=== PATIENT | female | born 1940 | race Caucasian/White ===

== ENCOUNTER → 2016-07-12 07:45 | Outpatient (CLI) | payer MEDICARE, OTHER ==
[2013-12-19 10:15] VITALS: BMI 22.1
[~2016-07-12 07:45] MED LIST: COLACE100 MG PO; COREG12.5 MG PO; K-TAB10 MEQ PO; LASIX40 MG PO; MAGNESIUM GLUC500 M1 PO; MOBIC7.5 MG PO; MULTI-DAY VITAM1 TAB PO; NEXIUM40 MG PO; NORVASC5 MG PO; PRAVACHOL20 MG PO; PROZAC10 MG PO; VENTOLIN HFA18 GM INH
== END | disposition home or self-care (01) ==
LOC: D.RAD 07:45
DX: J44.9 Chronic obstructive pulmonary disease, unspecified (principal)

== ENCOUNTER → 2016-08-15 09:15 | Outpatient (CLI) | payer MEDICARE, OTHER ==
[2013-12-19 10:15] VITALS: BMI 22.1
[2016-08-15 10:13] LABS: CREATININE - SERUM 0.9 mg/dL (0.6-1.3)
== END | disposition home or self-care (01) ==
LOC: D.CT 09:15 → D.LAB 01-29 09:15 → D.CT 01-29 09:30
PROVIDERS: Internal Medicine Pulmonary Disease
DX: J47.9 Bronchiectasis, uncomplicated (principal)

== ENCOUNTER → 2017-03-19 15:14 | Outpatient (CLI) | payer MEDICARE, OTHER ==
[2013-12-19 10:15] VITALS: BMI 22.1
== END | disposition home or self-care (01) ==
LOC: D.RAD 10:15
DX: J45.991 Cough variant asthma (principal)

== ENCOUNTER → 2017-09-19 13:03 | Outpatient (CLI) | payer MEDICARE, OTHER ==
[2013-12-19 10:15] VITALS: BMI 22.1
== END | disposition home or self-care (01) ==
LOC: D.RT 13:00
DX: J44.9 Chronic obstructive pulmonary disease, unspecified (principal)

== ENCOUNTER 2018-01-04 14:12 | Inpatient (IN) | payer MEDICARE, OTHER ==
[~2018-01-04] VITALS: Ht 167.6 cm; Wt 62.6 kg
[2018-01-04 14:46] LABS: BASOPHILS 0.4 % (0-2); EOSINOPHILS 2.4 % (0-7); HEMATOCRIT 37.1 % (36.0-48.0); HEMOGLOBIN 12.5 g/dL (12-16); IMMATURE GRANULOCYTES 0.3 % (0-5); LYMPHOCYTES 30.9 % (15-50); MCH 30.5 pg (26.0-34.0); MCHC 33.7 g/dL (31.0-37.0); MCV 90.5 fL (80.0-100.0); MEAN PLATELET VOLUME 10.5 fL (7.4-10.4); RDW 13.6 % (11.5-14.5); WBC 7.5 10x3/uL (4.8-10.8)
[2018-01-04 14:52] LABS: PLATELET COUNT 187 10x3/uL (130-400)
[2018-01-04 15:00] LABS: ALBUMIN 4.1 g/dL (3.4-5.0); ANION GAP 9.4 mmol/L (8-16); BILIRUBIN - TOTAL 0.51 mg/dL (0.2-1.3); CALCIUM 8.8 mg/dL (8.5-10.1); CARBON DIOXIDE 30.2 mmol/L (21.0-32.0); POTASSIUM - SERUM 3.6 mmol/L (3.5-5.1); PROTEIN - SERUM 7.1 g/dL (6.4-8.2)
[2018-01-04 15:07] LABS: APTT 33.1 SECONDS (22.8-39.4); INR 0.95 (0.85-1.17); PROTIME 12.3 SECONDS (11.6-15.0)
[2018-01-04 15:37] VITALS: BP 169/64
[2018-01-04 16:10] VITALS: BP 156/54
[2018-01-04 18:37] VITALS: BP 150/63
[2018-01-04 19:45] VITALS: BP 167/75
[2018-01-04] MEDS ORDERED: COZAAR100 MG PO (21:59)
[2018-01-04] MEDS ORDERED: LIPITOR10 MG PO (22:01)
[2018-01-04] MEDS ORDERED: ALENDRONATE SOD70 MG PO (22:03)
[2018-01-04] MEDS ORDERED: ED-SPAZ0.125 MG PO (22:11)
[2018-01-05] VITALS: BP 127/59
[2018-01-05 00:37] VITALS: BP 127/59; BMI 22.3
[2018-01-05 04:00] VITALS: BP 160/55
[2018-01-05] MEDS ORDERED: PLAVIX75 MG PO (06:34)
[2018-01-05 09:15] VITALS: BP 161/52
[2018-01-05 13:57] VITALS: BMI 22.2
[2018-01-05 14:28] VITALS: Ht 167.6 cm; Wt 62.6 kg
[2018-01-05 17:00] VITALS: BP 156/57
[2018-01-05 20:38] VITALS: BP 92/41
[2018-01-06 00:30] VITALS: BP 126/60
[2018-01-06 04:30] VITALS: BP 157/63
[2018-01-06 06:24] LABS: BASOPHILS 0.7 % (0-2); EOSINOPHILS 3.4 % (0-7); HEMATOCRIT 37.7 % (36.0-48.0); HEMOGLOBIN 12.5 g/dL (12-16); IMMATURE GRANULOCYTES 0.3 % (0-5); LYMPHOCYTES 38.8 % (15-50); MCH 30.2 pg (26.0-34.0); MCHC 33.2 g/dL (31.0-37.0); MCV 91.1 fL (80.0-100.0); MEAN PLATELET VOLUME 10.7 fL (7.4-10.4); MONOCYTES 12.1 % (2-11); NEUTROPHILS 44.7 % (40-80); PLATELET COUNT 189 10x3/uL (130-400); RBC 4.14 10x6/uL (4.00-5.40); RDW 13.9 % (11.5-14.5); WBC 5.9 10x3/uL (4.8-10.8)
[2018-01-06 06:54] LABS: ALBUMIN 3.4 g/dL (3.4-5.0); ANION GAP 10.1 mmol/L (8-16); BILIRUBIN - TOTAL 0.3 mg/dL (0.2-1.3); CALCIUM 8.4 mg/dL (8.5-10.1); CARBON DIOXIDE 28.6 mmol/L (21.0-32.0); CREATININE - SERUM 0.8 mg/dL (0.6-1.3); POTASSIUM - SERUM 3.7 mmol/L (3.5-5.1); PROTEIN - SERUM 6.3 g/dL (6.4-8.2)
[2018-01-06 08:51] VITALS: BP 133/67
[2018-01-06 12:20] VITALS: BP 121/48
[2018-01-06 16:55] VITALS: BP 141/43
[2018-01-06 20:20] VITALS: BP 136/50
[2018-01-07 00:30] VITALS: BP 134/54
[2018-01-07 04:30] VITALS: BP 150/56
[2018-01-07 04:34] LABS: BASOPHILS 0.7 % (0-2); EOSINOPHILS 3.8 % (0-7); IMMATURE GRANULOCYTES 0.5 % (0-5); LYMPHOCYTES 43.6 % (15-50); MCH 30.2 pg (26.0-34.0); MCHC 33.3 g/dL (31.0-37.0); MCV 90.7 fL (80.0-100.0); MEAN PLATELET VOLUME 10.4 fL (7.4-10.4); MONOCYTES 9.1 % (2-11); NEUTROPHILS 42.3 % (40-80); PLATELET COUNT 179 10x3/uL (130-400); RBC 3.97 10x6/uL (4.00-5.40); RDW 13.9 % (11.5-14.5); WBC 5.8 10x3/uL (4.8-10.8)
[2018-01-07 05:07] LABS: ALBUMIN 3.2 g/dL (3.4-5.0); ANION GAP 11.7 mmol/L (8-16); BILIRUBIN - TOTAL 0.2 mg/dL (0.2-1.3); CARBON DIOXIDE 26.9 mmol/L (21.0-32.0); CREATININE - SERUM 0.9 mg/dL (0.6-1.3); POTASSIUM - SERUM 3.6 mmol/L (3.5-5.1)
[2018-01-07 07:47] VITALS: BP 139/48
[2018-01-07] MEDS ORDERED: COREG12.5 MG PO (10:25)
[2018-01-07] MEDS ORDERED: ASPIRIN81 MG PO (10:26)
[2018-01-07 11:18] VITALS: BP 152/52
[2018-02-05] MEDS ORDERED: ASPIRIN325 MG PO (11:38)
[2018-02-05] MEDS ORDERED: COZAAR100 MG PO (11:39)
[2018-02-05] MEDS ORDERED: CALCIUM 600 +1 EAC3 PO (11:42)
[2018-02-05] MEDS ORDERED: DULERA 100 MCG8.8 GM INH (11:43)
[2018-02-05] MEDS ORDERED: FLUTICASONE PRO16 GM NASAL (11:44)
== END 2018-01-07 13:57 | disposition home or self-care (01) | DRG 66 ==
LOC: D.ER 14:12 → D.M2 18:40 → D.EDHOLD 18:40 → D.M2 20:55
PROVIDERS: Emergency Medicine; Family Medicine
DX: I63.233 Cerebral infarction due to unspecified occlusion or stenosis of bilateral carotid arteries (principal); I10 Essential (primary) hypertension; E78.5 Hyperlipidemia, unspecified; M81.0 Age-related osteoporosis without current pathological fracture; Z85.3 Personal history of malignant neoplasm of breast; I25.10 Atherosclerotic heart disease of native coronary artery without angina pectoris; I69.322 Dysarthria following cerebral infarction; R20.0 Anesthesia of skin

== ENCOUNTER 2018-01-10 03:45 | Emergency (ER) | payer MEDICARE, OTHER ==
[~2018-01-10] VITALS: Ht 167.6 cm; Wt 63.6 kg
[~2018-01-10 03:45] MED LIST changes: +ALENDRONATE SOD70 MG PO; +ASPIRIN81 MG PO; +COZAAR100 MG PO; +ED-SPAZ0.125 MG PO; +LIPITOR10 MG PO; +PLAVIX75 MG PO
[2018-01-10 03:52] VITALS: Ht 167.6 cm; Wt 63.6 kg
[2018-01-10 04:38] VITALS: BP 160/70
== END 2018-01-10 04:38 | disposition home or self-care (01) ==
LOC: D.ER 03:45
DX: R20.2 Paresthesia of skin (principal); Z86.79 Personal history of other diseases of the circulatory system; Z86.73 Personal history of transient ischemic attack (TIA), and cerebral infarction without residual deficits; Z79.01 Long term (current) use of anticoagulants; I10 Essential (primary) hypertension

== ENCOUNTER 2018-02-06 05:00 | Inpatient (IN) | payer MEDICARE, OTHER ==
[2018-02-05 11:20] LABS: HEMOGLOBIN 11.7 g/dL (12-16); MCH 30.5 pg (26.0-34.0); MCHC 33.4 g/dL (31.0-37.0); MCV 91.4 fL (80.0-100.0); MEAN PLATELET VOLUME 10.1 fL (7.4-10.4); RBC 3.83 10x6/uL (4.00-5.40); RDW 13.4 % (11.5-14.5); WBC 7.8 10x3/uL (4.8-10.8)
[2018-02-05 11:30] LABS: ALBUMIN 3.6 g/dL (3.4-5.0); ANION GAP 9.5 mmol/L (8-16); BILIRUBIN - TOTAL 0.46 mg/dL (0.2-1.3); CALCIUM 9.1 mg/dL (8.5-10.1); CARBON DIOXIDE 30.7 mmol/L (21.0-32.0); POTASSIUM - SERUM 4.2 mmol/L (3.5-5.1); PROTEIN - SERUM 6.8 g/dL (6.4-8.2)
[2018-02-05 11:32] LABS: APPEARANCE CLEAR (CLEAR); BILIRUBIN NEGATIVE (NEGATIVE); COLOR YELLOW (YELLOW); GLUCOSE NEGATIVE (NEGATIVE); KETONE NEGATIVE (NEGATIVE); NITRITE NEGATIVE (NEGATIVE); PH 7.5 (5.0-6.0); PROTEIN NEGATIVE (NEGATIVE); SPECIFIC GRAVITY 1.005 (1.005-1.020); UROBILINOGEN NORMAL (NORMAL)
[2018-02-05 11:36] LABS: APTT 31.5 SECONDS (22.8-39.4); INR 1.03 (0.85-1.17); PROTIME 13.1 SECONDS (11.6-15.0)
[2018-02-06] VITALS (56 sets, daily range): BP systolic 99–143; BP diastolic 39–65; BMI 22.6; BMI 23.1
[~2018-02-06] VITALS: Ht 167.6 cm; Wt 65.7 kg
--- NOTE | ~2018-02-06 | HP ---
PATIENT: ROXANA SOLIS MEDICAL RECORD: [id number] ACCOUNT: [id number] LOCATION:[facility] D.CV03 : 39 ADMISSION DATE: 02/06/18 PCP: FRANTZ ARRIOLA MD HISTORY AND PHYSICAL EXAMINATION ROXANA Riggs (77yo, F) ID# [id number] Date/Time01/24/2018 01:53IJCCS45 1939Service Dept.[facility]PP[facility] ClinicProviderEDBETH ARRIOLA MDInsuranceMed Primary: [place] Insurance # : [id number] PCP : GABRIELLA KNIGHT I Referring Provider Name : GABRIELLA KNIGHT I Employer Name : UNKNOWN Med Secondary: [employer] (INDEMNITY) Insurance # : [id number] Policy/Group # : [id number] Employer Name : RETIRED Med Tertiary: FOR LIFE ( - MEDICARE SUPPLEMENT) Insurance # : [id number] Employer Name : RETIRED Prescription: CMX - Member is eligible. Prescription: ESI1 - Member is eligible. Chief Complaint Carotid stenosis 2 week hospital follow up, hx TIA/CVA Patient's Care Team Primary Care Provider (): GABRIELLA KNIGHT I: [address] [place] [address], , Referring Provider (): GABRIELLA KNIGHT I: [address] [place] [address], , Wallet Assembler: LESLY PEREZ MD Patient's Pharmacies [facility] ([facility]): [address] [place] [address], , [facility] (PRIMARY) (MAIL-ORDER, [facility]): [address], [place] [address], , Vitals BP:152/60 sitting R arm 01/24/2018 02:24 pm 154/60 sitting L arm 01/24/2018 02:24 pmHR:66/reg 01/24/2018 02:24 pmHt:5 ft 6 in 01/24/2018 02:18 pmWt:145 lbs 01/24/2018 02:20 pmBMI:23.4 01/24/2018 02:20 pmAllergies Reviewed Allergies HYDRODIURILMedications Reviewed Medications alendronate 70 mg /08/18 filledCaremarkamLODIPine 5 mg /27/18 filledCaremarkatorvastatin 20 mg yvouxf29/05/18 filledCaremarkcarvedilol 12.5 mg /27/18 filledCaremarkclopidogrel 75 mg tablet Take 1 tablet(s) every day by oral route.01/22/18 enteredKat Wilsondocusate sodium 100 mg capsule Take 1 capsule(s) every day by oral route.01/22/18 enteredKat WilsonDulera 100 mcg-5 mcg/actuation HFA aerosol inhaler INHALE TWO PUFFS BY MOUTH TWICE A DAY09/02/17 filledCaremarkEd-Spaz 0.[address] 1 tablet(s) every 4 hours by sublingual route.01/22/18 enteredKat Wilsonesomeprazole magnesium 40 mg capsule,delayed release Take 1 capsule(s) every day by oral route for 30 days.12/10/17 HISTORY AND PHYSICAL [id number] ROXANA SOLSI filledCaremarkFlonase Allergy Relief 50 mcg/actuation nasal spray,suspension [place] 1 spray(s) every day by intranasal route.08/04/16 Yeyo Hammond MDFLUoxetine 10 mg vglvuf50/12/18 filledCaremarkfurosemide 40 mg /06/18 filledCaremarkmagnesium gluconate 27.5 mg magnesium (500 mg) tablet Take by oral route.01/22/18 enteredKathy Wilsonmeloxicam 15 mg kaamsp89/21/18 filledCaremarkpotassium chloride ER 20 mEq tablet,extended release(part/cryst)07/17/17 filledCaremarkTheragran-M Premier 50 Plus01/22/18 enteredKat WilsonVentolin HFA 90 mcg/actuation aerosol inhaler Inhale 2 puff(s) every 4 hours by inhalation route as needed.10/10/17 filledCaremarkVaccines Reviewed Vaccines Vaccine TypeDateAmt.RouteSiteLot #Mfr.Exp. DateDate on VISVIS KfesbMvwdrniyigXmwioqnvf26/14/170.5 mgIntramuscularDeltoid, Xqfqd2r9nBrcarGwgmkAfczh59//11/1510/14/17CHARITY MCALLISTERinfluenza, high dose [id number] vax 2014, PVX 23- < 5 yrs. Problems Reviewed Problems Candidiasis of mouth Carotid artery stenosis - Onset: 01/22/2018, Bilateral Rhinitis Cough variant asthma Bronchiectasis Chronic obstructive lung disease Atelectasis Gastroesophageal reflux disease Fever Dyspnea Cough Hemoptysis, Bilateral Solitary nodule of lung Family History Reviewed Family History Maternal Aunt- Malignant neoplastic disease - Breast (previously recorded as Cancer, other)Unspecified Relation- Diabetes mellitus - natural child - Family history of Cardiovascular disease - parent,siblingSocial History Reviewed Social History Cardiology Family history of heart disease?: Y Smoking Status: Never smoker High Cholesterol: Y High blood pressure: Y Alcohol intake: Moderate (Notes: 1-2 ozs per day) Occupation: Retired Surgical History Reviewed Surgical History Other - 2010 - T Spine - T10 Other - 1997 - Reconstruction R Post Masectomy HISTORY AND PHYSICAL [id number] ROXANA SOLIS Other - 1996 - R Masectomy Other - 1989 - Thorocotomy 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 HPI Stroke Carotid artery disease ROS Patient reports no significant weight loss and no exercise intolerance; dieting. She reports cough but reports no wheezing and no shortness of breath. She reports weakness and numbness but reports no loss of consciousness, no seizures, no dizziness, and no headaches; Recent stroke left hemisphere secondary to ruptured carotid plaque. She reports runny nose and sinus pressure but reports no itching, no hives, and no frequent sneezing. She reports no dry eyes, no irritation, and no vision change. She reports no difficulty hearing and no ear pain. She reports no frequent nosebleeds and no nose/sinus problems. She reports no sore throat, no bleeding gums, no snoring, no dry mouth, no mouth u l cers, no oral abnormalities, and no teeth problems. She reports no jugular vein distension and no swollen glands. She reports no chest pain, no arm pain on exertion, no shortness of breath when lying down, no palpitations, and no known heart murmur. She r e ports no abdominal pain, no vomiting, normal appetite, no diarrhea, not vomiting blood, no nausea, and no constipation. She reports no incontinence, no difficulty urinating, no hematuria, and no increased frequency. She reports no muscle aches, no muscle w eakness, no arthralgias/joint pain, no back pain, and no swelling in the extremities. She reports no abnormal mole, no jaundice, and no rashes. She reports no depression, no sleep disturbances, feeling safe in relationship, and no alcohol abuse. She repor ts no fatigue. She reports no swollen glands and no bruising. ROS as noted in the HPI Physical Exam Patient is a 77-year-old female. Constitutional: General Appearance: well nourished and well developed. Level of Distress: no acute distress. Ambulation: ambulating normally. Ears: Cerumen negative. Canal: no erythema or swelling. Tympanic Membrane: no bulging or fluid and perforated. HISTORY AND PHYSICAL [id number] ROXANA SOLIS Nasal: Nasal Mucosa: no discharge and pink and moist. Septum: not markedly deformed. Oropharynx: Lips, Teeth, and Gums normal dentition; Right lower lip droop. Oral Mucosa no ulcer, mass, inflammation, swelling, or leukoplakia and moist. Palate: normal hard palate and soft palate. Tongue: no erythema, lesions, enlargement, or swelling. Tonsils: no enlargement or lesions. Post erior Pharynx no enlargement, erythema, exudate, ulcers, mass, or white patches and cobblestoning. Neck: Neck: supple, trachea midline, no masses, and Full ROM; Bilateral carotid bruits. Thyroid: no enlargement or nodules and non-tender. Jugular Veins: no jugular venous distention or drew a waves present and normal jugular venous pressure. Lungs: Respiratory effort: unlabored. Inspection: normal curve and chest wall expansion; no deformity, tenderness, or swellin g; and tactile fremitus present and equal on both sides. Auscultation: no wheezing, rales/crackles, or rhonchi and decreased breath sounds,bilateral,bases. Percussion: no dullness, flatness, or hyperresonance. Cardiovascular: Precordial Exam: non displace d focal PMI. Heart Rate And Rhythm: normal heart rate and rhythm. Heart Sounds: no gallop, click, physiologically split S2, or pericardial friction rub and normal s1. Systolic Murmur: no systolic murmurs. Diastolic Murmur: no diastolic murmurs. Observatio n/Palpation of peripheral vascular system: no cyanosis or varicosity changes and normal dorsalis pedis and posterior tibialis. Abdomen: Inspection and Palpation: no tenderness or masses and soft and non-distended. Liver: non-tender and no hepatomegaly. Spl een: non-tender and no splenomegaly. Bowel Sounds: normal and no abdominal bruits. Lymphatic: no cervical lymph enlargement, axillary LAD, inguinal LAD, femoral LAD, supraclavicular LAD, or popliteal LAD. Musculoskeletal:: Motor Strength and Tone: normal bulk, tone, and motor strength. Gait and Station: normal gait, station, and tandem gait. Joints, Bones, and Muscles: no contractures, malalignment, tenderness, scoliosis, kyphosis, or bony abnormalities and normal movement of all extremities. Extremities: Inspection/Palpation of digits and nails: no clubbing, cyanosis, petechiae, ischemia, or nodular lesions and Edema; trace. Skin: Inspection and palpation: no rash, lesions, jaundice, ulcer, erythema, or induration and normal turgor. Neurologic: Mental S tatus/Orientation: oriented to person, place, problem/situation, and time. Mood/Affect: normal mood and affect. Sensation decreased sensation (Left upper extremity). Cranial Nerves cranial nerves II - XII intact; Weak right central seventh Mandibular branch. Deep Tendon Reflexes upper extremities positive and lower extremities positive. Assessment / Plan Bilateral carotid artery disease Severe stenosis right internal carotid artery Ruptured plaque with stenosis left carotid bulb Recovering from stroke 1. Bilateral carotid artery stenosis I65.23: Occlusion and stenosis of bilateral carotid arteries HISTORY AND PHYSICAL [id number] ROXANA SOLIS Discussion Notes Severe right internal carotid artery stenosis. Rupture plaque left carotid bulb with embolic stroke. I think that the patient would benefit from right carotid endarterectomy followed by left carotid endarterectomy. I have discussed her Disease process with her and her daughter in detail as well as the alternative methods of treatment. We discussed right c arotid endarterectomy followed by left carotid endarterectomy at a later date. We discussed right carotid endarterectomy including the expected benefits and risk which include bleeding, infection, stroke, , and the imponderables. She understands all of the above and wishes to proceed with planned surgery. She will be scheduled for 06 February 2018 FRANTZ ARRIOLA MD at 1040 CC: [id number] DICTATION DATE: 01/24/18 1330 CHAIN PERSON: PONCHO 01/29/18 1256 ADM IN [facility] [address] [place] [id number]
--- NOTE | ~2018-02-06 | OP ---
PATIENT NAME: ROXANA SOLIS MEDICAL RECORD: [id number] :38 LOCATION:[place] D.CV03 ADMISSION DATE:02/06/18 SURGEON: FRANTZ ARRIOLA MD DATE OF OPERATION: 02/06/2018 SURGEON: Frantz Arriola MD ANESTHESIA: General, Dr. Khalil. OPERATION PERFORMED: Right carotid endarterectomy with patch angioplasty. PREOPERATIVE DIAGNOSIS: Critical right internal carotid artery stenosis. POSTOPERATIVE DIAGNOSIS: Critical right internal carotid artery stenosis. INDICATION FOR OPERATION: Severe right internal carotid artery stenosis. FINDINGS AT OPERATION: Severe right internal carotid artery stenosis. There were no EEG changes with clamping or unclamping of the carotid artery. ESTIMATED BLOOD LOSS: Less than 100 mL. The right internal carotid artery lesion tract fairly far distally, but feathered out nicely. DESCRIPTION OF PROCEDURE: After informed consent, adequate preoperative medication evaluation, the patient was brought to the operating room, placed on the table in the supine position. After induction of general endotracheal anesthesia and application of appropriate monitoring devices, the right neck and chest were prepped and draped in sterile field, utilizing Betadine scrub, alcohol, and Betadine solution. Betadine-impregnated drape was also used. An oblique incision was made in the right neck crease, dissection carried down the fascia. Hemostasis maintained with electrocautery. Facial vein was identified and divided. Utilizing sharp dissection, the common carotid, internal and external carotid arteries were dissected free from surrounding structures, protecting the neurological structures. The lesion in the right internal carotid progressed well distally under the hypoglossal nerve. The patient was given a calculated dose of heparin. After 3 minutes, clamps were applied. After 2 minutes, no EEG change. The arteriotomy was made and extended with Agee scissors. Artery underwent endarterectomy sharply. Artery underwent extensive debridement and irrigation. Utilizing a CorMatrix vascular patch and running 7-0 Prolene suture, the arteriotomy was closed with a patch angioplasty technique. All maneuvers to remove trapped air were performed. The clamps removed sequentially. There were no EEG changes. The patient was given a calculated dose of protamine to reverse the heparin. Hemostasis was achieved. A #7 Andrzej-Michael drain was left in the depths of wound and brought through the base of the neck. Neck was again irrigated. Instrument count and sponge count were correct times 2. Neck was closed in layers utilizing 3-0 Vicryl on the platysma, 5-0 subcuticular Monocryl on the skin. Sterile dressings were applied. The patient tolerated the procedure well and was transferred to cardiovascular recovery in stable condition. TRANSINT:[id number] Voice Confirmation ID: [id number] DOCUMENT ID: [id number] OPERATIVE REPORT [id number] ROXANA SOLIS EDWARD MD at 1040 CC: [id number] DICTATION DATE: 02/06/18 1023 ROLLING CHAIR PUSHER: 02/06/[address] [facility] [address] [place] [address]
[~2018-02-06 05:00] MED LIST changes: +ASPIRIN325 MG PO; +CALCIUM 600 +1 EAC3 PO; +DULERA 100 MCG8.8 GM INH; +FLUTICASONE PRO16 GM NASAL
[2018-02-07] VITALS (55 sets, daily range): BP systolic 109–153; BP diastolic 43–60; Ht 167.6 cm; Wt 65.7 kg
[2018-02-08] VITALS (10 sets, daily range): BP systolic 111–163; BP diastolic 40–56
[2018-02-08] MEDS ORDERED: ASPIRIN81 MG PO (09:01)
[2018-02-08] MEDS ORDERED: ULTRAM50 MG PO (09:05)
== END 2018-02-08 10:54 | disposition home or self-care (01) | DRG 39 ==
LOC: D.SDCHOLD 05:00 → D.CVICU 05:00 → D.SDCHOLD 07:30 → D.CVICU 09:00
PROVIDERS: Internal Medicine Cardiovascular Disease
PROC: 03UK0JZ Supplement Right Internal Carotid Artery with Synthetic Substitute, Open Approach (ICD-10-PCS; 2018-02-06)
PROC: 03CK0ZZ Extirpation of Matter from Right Internal Carotid Artery, Open Approach (ICD-10-PCS; principal; 2018-02-06 07:30)
DX: I65.23 Occlusion and stenosis of bilateral carotid arteries (principal); J45.991 Cough variant asthma; J47.9 Bronchiectasis, uncomplicated; K21.9 Gastro-esophageal reflux disease without esophagitis; R91.1 Solitary pulmonary nodule; I10 Essential (primary) hypertension; I69.331 Monoplegia of upper limb following cerebral infarction affecting right dominant side; M81.0 Age-related osteoporosis without current pathological fracture; R29.810 Facial weakness; Z85.3 Personal history of malignant neoplasm of breast

== ENCOUNTER → 2018-04-02 08:17 | Outpatient (CLI) | payer MEDICARE, OTHER ==
[2018-02-07 09:42] VITALS: BMI 23.4
--- NOTE | ~2018-04-02 | ST ---
PATIENT:ROXANA SOLIS MEDICAL RECORD: [id number] SEX: F LOCATION:[facility] ORDER #: ADMISSION DATE: 04/02/18 AGE OF PATIENT: 77 REFERRING PHYSICIAN: INTERPRETING PHYSICIAN: LESLY PEREZ MD DATE OF SERVICE: 04/02/2018 PROCEDURE: Nuclear stress test. INDICATION: Angina, hypertension, hyperlipidemia. DESCRIPTION OF PROCEDURE: She was exercised on standard Lexiscan protocol with 32.1 mCi of sestamibi injected at peak stress, 10.6 mCi were used previously for rest images. FINDINGS: Gated SPECT reveals a preserved ejection fraction at 76% with good wall motioning and thickening and brightening throughout all segments. SPECT IMAGING: Sestamibi was used as myocardial perfusion agent. There is reversibility anteriorly and apically. This includes the basal, mid, apical anterior segments as well as the apex itself. The degree of reversibility is moderate. The amount of myocardium involved is moderate. OVERALL IMPRESSION: 1. This is an abnormal nuclear stress test, reversibility anteriorly and apically. 2. Gated SPECT reveals preserved ejection fraction at 76%. In this patient with ongoing symptomatology, the current scan does suggest the presence of hemodynamically significant coronary artery disease. We will proceed with coronary angiography as follow up. TRANSINT:[id number] Voice Confirmation ID: [id number] DOCUMENT ID: [id number] LESLY PEREZ MD at 1704 CC: [id number] DICTATION DATE: 04/03/18 1217 FINANCIAL INVESTMENT MANAGER: 04/03/18 1329 DEP CLI 04/02/18 [place] [id number]
[~2018-04-02 08:17] MED LIST changes: +BAYER CHEWABLE81 MG PO; +TESSALON PERLE100 MG PO; +ULTRAM50 MG PO
== END | disposition home or self-care (01) ==
LOC: D.HCCARDIO 08:17
DX: I20.9 Angina pectoris, unspecified (principal)

== ENCOUNTER → 2018-04-15 08:00 | Outpatient (CLI) | payer MEDICARE, OTHER ==
[~2018-04-15] VITALS: Ht 167.6 cm; Wt 63.2 kg
--- NOTE | ~2018-04-15 | OP ---
PATIENT NAME: ROXANA SOLIS MEDICAL RECORD: [id number] :39 LOCATION:D.CAT ADMISSION DATE: SURGEON: LESLY PEREZ MD DATE OF OPERATION: 04/15/2018 PROCEDURES: 1. PTCA stent RCA. 2. Left heart catheterization. 3. Selective coronary angiography. 4. Left ventriculogram. INDICATION: Angina and coronary artery disease. PROCEDURE IN DETAIL: After informed consent was obtained and after a detailed description of the risks, benefits as well as alternative therapies, the patient elected to proceed with angiogram and angioplasty. The right radial area was prepped and draped in normal sterile fashion. Right radial artery was cannulated via modified Seldinger technique with placement of 6-Citizen [place] sheath. All catheters exchanged through this sheath. FINDINGS: Left ventriculogram was performed in standard 30-degree MORALES view, reveals good cardiac wall motion throughout all segments. Overall ejection fraction estimated at 55% to 60%. SELECTIVE CORONARY ANGIOGRAPHY: 1. Left main is with no significant angiographic disease. 2. Left anterior descending has at least 70% stenosis in the mid vessel that is hazy. This would be better delineated exactly by intravascular ultrasound. 3. The left circumflex has 80% to 90% stenosis in the mid vessel. 4. Right coronary artery has 2 areas of 95% stenosis. PTCA STENT OF THE RCA: The stent used 2.5 x 18 and 2.5 x 26, both Afshin stents. Result was 0% residual stenosis. OVERALL IMPRESSION: Successful percutaneous transluminal coronary angioplasty stent of the right coronary artery going from 95% initial stenosis times 2 to 0% residual stenosis. TRANSINT:[id number] Voice Confirmation ID: [id number] DOCUMENT ID: [id number] LESLY PEREZ MD at 1025 CC: [id number] DICTATION DATE: 04/15/18 1025 GROUP SEGMENT CONSULTANT: 04/15/18 1234 DEP CLI 04/15/[address] [address]
--- NOTE | ~2018-04-15 | HEMODYNAMI ---
PATIENT:ROXANA SOLIS MEDICAL RECORD: [id number] : 38 LOCATION:[facility] ADMISSION DATE: 04/15/18 Generatedon:04/15/201810:27 Patient name: ROXANA SOLIS Patient #: [id number] SSN: : 1940 Date of study: 04/15/2018 Page: Of Hemodynamic Procedure Report Patient Data Patient Demographics Procedure consent was obtained First Name: ROXANA Gender: Female Last Name: IRMA : 1940 Middle Initial: NOLAN Age: 77 year(s) Patient #: [id number] Race: Unknown Additional ID: [id number] Contact details Address: [address] [place] [address] State: [place] City: [place] Zip code: [address] Admission Admission Data Admission Date: 04/15/2018 Admission Time: 8:00 Lab Results Lab Result Date: 04/15/2018 Lab Result Time: 0:00 Biochemistry Name Units Result Min Max BUN mg/dl 21 --(----)-* 7 18 Creatinine mg/dl 0.9 --(-*--)-- 0.6 1.3 CBC Name Units Result Min Max Hemoglobin g/dl 12.2 *-(----)-- 13.5 17.5 Procedure Procedure Types Cath Procedure Diagnostic Procedure [facility] w/Coronaries Sedation Charges Moderate Sedation up to 15 minutes PCI Procedure Coronary Stent Coronary Stent Initial Procedure Description Procedure Date Procedure Date: 04/15/2018 Procedure Start Time: 10:05 Procedure End Time: 10:24 Procedure Staff Name Function Stan Marcial MD Performing Physician Loyda Zhao RT Monitor Lelo Hayes RT Scrub Hu Samuel RN Nurse Antoine Canas RT Box Estimator Procedure Data Cath Procedure Fluoroscopy Diagnostic fluoroscopy Total fluoroscopy Time: 6.2 time: 6.2 min min Diagnostic fluoroscopy Total fluoroscopy dose: 563 dose: 563 mGy mGy Contrast Material Contrast Material Type Amount (ml) Isovue 300 100 Entry Location Entry Primary Successful Side Size Upsize Upsize Entry Closure Munguia ccessful Closure Location (Fr) 1 (Fr) 2 (Fr) Remarks Device Remarks Radial Right 6 Fr Mechanical artery Short Compression Estimated blood loss: 5 ml Diagnostic catheters Device Type Used For End Catheter Placement DIAGNOSTIC [place] 110cm 5 Multi-vessel Fr catheter ([id number]) Angiography Procedure Complications No complications Procedure Medications Medication Administration Route Dosage Oxygen etCO2 Nasal cannula 2 l/min Lidocaine 2% added to field 20 Heparin Flush Bag added to field 2 bags (1000units/500ml NS) 0.9% NaCl I.V. 100 ml/hr Radial Cocktail I.A. 1 syringe (Verapomil 2mg/Nitro 400mcg/Heparin 1500units) Versed I.V. 1 mg Fentanyl I.V. 50 mcg Heparin Bolus I.V. 4000 units Integrilin (Bolus I.V. 5.6 ml 2mg/ml) Plavix P.O. 300 mg Versed I.V. 1 mg Fentanyl I.V. 50 mcg Hemodynamics Rest HGB: 12.2 (g/dl) Heart Rate: 57 (bpm) Pressure Samples Time Site Value (mmHg) Purpose Heart Use Rate(bpm) 10:08 LV 113/13,17 Snapshot 58 Snapshots Pre Cath Intra NCS Post Cath Vital Signs Time Heart Resp SPO2 etCO2 NIBP (mmHg) Rhythm Pain Sedation Rate (ipm) (%) (mmHg) Status Level (bpm) 9:59:14 62 27 96 0 156/60(125) NSR 0 (11) 10(A) , No pain 10:03:38 60 15 99 38.4 151/56(89) NSR 0 (11) 10(A) , No pain 10:08:04 58 17 94 0 112/42(60) NSR 0 (11) 10(A) , No pain 10:12:18 58 17 92 0 102/41(75) NSR 0 (11) 9(A) , No pain 10:16:28 60 15 94 0 103/39(70) NSR 0 (11) 9(A) , No pain 10:20:34 60 16 94 0 120/54(84) NSR 0 (11) 9(A) , No pain 10:24:46 58 15 98 30.1 132/56(91) NSR 0 (11) 10(A) , No pain Medications Time Medication Route Dose Verified Delivered Reason Not es Effectiveness by by 10:01:45 Oxygen etCO2 2 l/min Stan Lui used for Nasal Aggie Samuel RN procedure cannula 10:01:52 Lidocaine 2% added 20ml Stan Pierce for local to vial Aggie Marcial MD anesthetic field 10:01:59 Heparin Flush added 2 bags Stan Pierce used for Bag to Aggie Marcial MD procedure (1000units/500ml field NS) 10:02:07 0.9% NaCl I.V. 100 Stan Buffie Per physician ml/hr Aggie Samuel RN 10:02:13 Radial Cocktail I.A. 1 Stan Pierce for (Verapomil syringe Aggie Marcial MD vasodilation 2mg/Nitro 400mcg/Heparin 1500units) 10:05:47 Versed I.V. 1 mg Stan Lui for sedation Aggie Samuel RN 10:05:52 Fentanyl I.V. 50 mcg Stan Lui for sedation Aggie Samuel RN 10:09:33 Versed I.V. 1 mg Stan Lui for sedation Aggie Samuel RN 10:09:36 Fentanyl I.V. 50 mcg Stan Lui for sedation Aggie Samuel RN 10:11:05 Heparin Bolus I.V. 4000 Stan Lui for devante ified units Aggie Samuel RN anticoagulation with dr marcial 10:12:29 Integrilin I.V. 5.6 ml Stan Lui for was jake (Bolus 2mg/ml) Aggie Samuel RN antiplatelet 4.4 ml therapy of vial 10:23:19 Plavix P.O. 300 mg Stan Lui for Aggie Samuel RN antiplatelet therapy Procedure Log Time Note 9:44:11 Informed consent obtained and on chart 9:44:17 Diagnostic Cath Status : Elective 9:44:51 Antoine Canas RT(R) sent for patient. Start room use. 9:44:52 Time tracking: Regular hours (M-F 7:00 - 5:00) 9:44:56 Plan of Care:Hemodynamics will remain stable., Cardiac rhythm will remain stable., Comfort level will be maintained., Respiratory function will remain adequate., Patient/ family verbilizes understanding of procedure., Procedure tolerated without complication., Recovers from procedure without complications.. 9:46:02 Patient received from Pre/Post Procedure Room to CCL 2 Alert and oriented. Tansferred to table in Supine position. 9:46:03 Warm blankets applied, and cecilia hugger turned on for patient comfort. 9:46:03 Correct patient and procedure confirmed by team. 9:46:04 ECG and BP/O2 sat monitors applied to patient. 9:57:05 Vital chart was started 9:57:07 Baseline sample Acquired. 9:57:18 Rhythm: sinus rhythm 9:57:20 Full Disclosure recording started 9:58:45 H&P Date Dictated: 04/15/2018 Within 30 days and on chart., H&P Addendum completed by physician on day of procedure. (MUST COMPLETE FOR ALL OUTPATIENTS). 9:58:46 Pre-procedure instructions explained to patient. 9:58:47 Pre-op teaching completed and patient verbalized understanding. 9:58:48 Family in waiting room. 9:58:49 Patient NPO since Midnight. 9:58:51 Is the patient allergic to Iodine/contrast media? No. 9:58:52 Was the patient premedicated? No 9:58:53 Is patient on blood thinner?Yes 9:58:56 ACC The patient was administered the following blood thiners within the last 24 hours: ACCPlavix 9:58:59 Patient diabetic? No. 9:59:01 Previous problem with sedation/anesthesia? No ? 9:59:03 Snore? Yes 9:59:04 Sleep apnea? No 9:59:05 Deviated septum? No 9:59:06 Opens mouth fully? Yes 9:59:07 Sticks out tongue? Yes 9:59:16 Airway obstruction? Yes bronchitis 9:59:18 Dentures? No ? 9:59:36 Pre procedure: right dorsailis pedis pulse 2+ Normal; easily identifiable; not easily obliterated 9:59:38 Pre procedure: left dorsailis pedis pulse 2+ Normal; easily identifiable; not easily obliterated 9:59:40 Patient pain scale 0/10 ?. 9:59:44 IV patent on arrival in left forearm with 0.9% NaCl at KVO. 9:59:47 Lab results completed and on chart. 9:59:51 Right Radial & Right Groin area was prepped with chlora-prep and draped in sterile fashion 9:59:52 Alarms reviewed by R. N. :: Sharps counted by scrub and verified by R.N. ::36 Lab Result : BUN 21 mg/dl ::36 Lab Result : Hemoglobin 12.2 g/dl ::36 Lab Result : Creatinine 0.9 mg/dl 10::45 Oxygen 2 l/min etCO2 Nasal cannula was administered by Hu Samuel RN; used for procedure; ::52 Lidocaine 2% 20ml vial added to field was administered by Stna Marcial MD; for local anesthetic; ::59 Heparin Flush Bag (1000units/500ml NS) 2 bags added to field was administered by Stan Marcial MD; used for procedure; 10:02:07 0.9% NaCl 100 ml/hr I.V. was administered by Hu Samuel RN; Per physician; 10:02:13 Radial Cocktail (Verapomil 2mg/Nitro 400mcg/Heparin 1500units) 1 syringe I.A. was administered by Stan Marcial MD; for vasodilation; 10:03:14 Physician arrived 10:03:15 --------ALL STOP TIME OUT------ 10:03:15 Final Timeout: patient, procedure, and site verified with staff and physician. All members of the team are in agreement. 10:03:18 Right Radial & Right Groin site verified by team. 10:03:21 Physical assessment completed. ASA score P 2 - A patient with mild systemic disease as per Stan Marcial MD. 10:03:25 Sedation plan: IV Moderate Sedation Medication:Versed, Fentanyl 10:04:58 Procedure started. 10:05:02 Local anesthetic to right radial artery with Lidocaine 2% by Stan Marcial MD.INITIAL ACCESS ONLY 10:05:11 A 6 Fr Short sheath was inserted into the Right Radial artery 10:05:29 Zero performed for pressure channel P1 10:05:47 Versed 1 mg I.V. was administered by Hu Samuel RN; for sedation; ::52 Fentanyl 50 mcg I.V. was administered by Hu Samuel RN; for sedation; 10:06:39 Use device set Radial Dx or PCI 10:06:40 ACIST Syringe (65607) opened to sterile field. 10:06:41 Medline Cath Pack ([id number]) opened to sterile field. 10:06:41 Bag Decanter (2001S) opened to sterile field. 10:06:41 DIAGNOSTIC WIRE .035 260cm J wire (148983) opened to sterile field. 10:06:42 ACIST Hand Control (47581) opened to sterile field. 10:06:42 ACIST Manifold (68623) opened to sterile field. 10:06:43 Tegaderm 4 x 4 (1626W) opened to sterile field. 10:06:43 MBrace Wrist Support ([id number]) opened to sterile field. 10:06:44 SHEATH 6FR Slender (92-6179) opened to sterile field. 10:06:49 A DIAGNOSTIC [place] 110cm 5 Fr catheter (400682) was advanced over the wire and used for Multi-vessel Angiography. 10:08:14 LV hemodynamics recorded. 10:08:16 LV gram done using MORALES 10:08:18 Injector settings: Ml/sec: 5, Volume: 15, 10:08:26 EF : 60 % 10:08:35 LCA angiography performed. 10:08:41 Injector settings: Ml/sec: 3, Volume: 6, 10:09:13 RCA angiography performed. 10:09:16 Injector settings: Ml/sec: 3, Volume: 6, 10:09:33 Versed 1 mg I.V. was administered by Hu Samuel RN; for sedation; 10:09:36 Fentanyl 50 mcg I.V. was administered by Hu Samuel RN; for sedation; 10:09:46 Catheter removed. 10:09:48 Proceeding to intervention. 10:10:07 INFLATOR Merit BasixCompak (UG2089) opened to sterile field. 10:10:08 CHOICE PT Extra Support 182cm wire ([id number]) opened to sterile field. 10:10:43 GUIDE 6FR AR 1.0 SH catheter ([id number]) opened to sterile field. 10:11:05 Heparin Bolus 4000 units I.V. was administered by Hu Samuel RN; for anticoagulation; verified with dr marcial 10:11:19 6 Fr ar 1 sh guide catheter was inserted over the wire 10:11:24 choice pt wire advanced. 10:11:35 Wire advanced across lesion. 10:12:29 Integrilin (Bolus 2mg/ml) 5.6 ml I.V. was administered by Hu Samuel RN; for antiplatelet therapy; wasted 4.4 ml of vial 10:12:54 Guide Catheter removed. unable to cannulate vessel. 10:13:10 GUIDE 6FR HS I SH catheter ([id number]) opened to sterile field. 10:13:43 6 Fr hs 1 sh guide catheter was inserted over the wire 10:13:50 choice pt wire advanced. 10:15:11 Wire advanced across lesion. 10:17:34 Place stent Inflation Number: 1 A ROXANNE RX 2.5 x 18 stent ([id number]) was prepped and advanced across the Dist RCA. The stent was deployed at 13 JUDIE for 0:00 (min:sec). 10:17:53 Inflation number: 2 The stent balloon was then re-inflated across the Dist RCA to 15 JUDIE for 0:10 (min:sec). 10:19:03 Stent catheter was removed intact over wire. 10:20:15 Place stent Inflation Number: 1 A ROXANNE RX 2.5 x 26 stent ([id number]) was prepped and advanced across the Mid RCA. The stent was deployed at 13 JUDIE for 0:10 (min:sec). 10:21:31 Stent catheter was removed intact over wire. 10:21:36 TR BAND Standard ([id number]) opened to sterile field. 10:21:48 Sheath removed intact; hemostasis achieved with Mechanical Compression to the Right Radial artery. 10:22:24 Procedure ended.(Physican Out) 10:23:07 Fluoroscopy time 06.20 minutes. 10:23:10 Fluoroscopy dose: 563 mGy 10:23:10 Flurop Dose total: 563 10:23:17 Contrast amount:Isovue 300 100ml. 10:23:19 Plavix 300 mg P.O. was administered by Hu Samuel RN; for antiplatelet therapy; 10:23:20 Sharps counted by scrub and verified by R.N. 10:23:23 TR band inflated with 10cc of air. 10:23:25 Insertion/operative site no bleeding no hematoma. 10:23:30 Post right radial artery:stable 10:23:31 Post Procedure Pulses reassessed and unchanged 10:23:33 Post procedure rhythm: unchanged. 10:23:36 Estimated blood loss: 5 ml 10:23:37 Post procedure instruction explained to patient.Patient verbalizes understanding. 10:23:38 Patient needs reinforcement of post procedure teaching. 10:23:50 Procedure type changed to Cath procedure, Diagnostic procedure, LHC, LHC w/Coronaries, Sedation Charges, Moderate Sedation up to 15 minutes, PCI procedure, Coronary Stent, Coronary Stent Initial 10:23:51 Procedure and supply charges have been captured, reviewed, submitted and are correct. 10:23:55 Procedure Complication : No complications 10:23:57 Vital chart was stopped 10:23:58 See physician's report for complete and final results. 10:24:07 Report given to Pre/Post Procedure Room. 10:24:09 Patient transfered to Pre/Post Procedure Room with Stretcher. 10:24:11 Procedure ended. 10:24:11 Full Disclosure recording stopped 10:24:21 ACC-PCI Only Patient was given prescriptions, or instructed by Stan Marcial MD to start/continue the following medications upon discharge: Plavix 10:24:22 End room use (Document Last) Intervention Summary Intervention Notes Time ActionType Lesion and Equipment Used Action# Pressure Duration Attributes 10:17:34 Place stent Dist RCA ROXANNE RX 2.5 x 1 13 00:00 18 stent ([id number]) 10:17:53 Reinflate Dist RCA ROXANNE RX 2.5 x 2 15 00:10 stent 18 stent balloon ([id number]) 10:20:15 Place stent Mid RCA ROXANNE RX 2.5 x 1 13 00:10 26 stent ([id number]) Device Usage Item Name Manufacture Quantity Catalog Number Hospital Part Current M inimal Lot# / Charge Number Stock Stock Serial# Code ACIST Syringe Acist 1 57059 016328 683169 202703 2 0 (79987) Medical Systems Inc Medline Cath Medline 1 [id number] 906977 23529 765819 5 Pack ([id number]) Bag Decanter Microtek 1 474100 48979 855379 5 () Medical Inc. DIAGNOSTIC St [place] 1 284402 923183 612997 027822 3 0 WIRE .035 260cm J wire (915480) ACIST Hand Acist 1 11591 893615 728766 110877 5 Control Medical (95008) Systems Inc ACIST Manifold Acist 1 65477 873158 540366 405416 5 (15531) Medical Systems Inc Tegaderm 4 x 4 3M 1 1626W 800129 195070 164188 5 (1626W) MBrace Wrist Advanced 1 140-0250-00 167890 73743 472905 5 Support Vascular ([id number]) Dynamics SHEATH 6FR Terumo 1 [id number] 731239 953112 562654 4 0 Slender (80-1060) DIAGNOSTIC Terumo 1 40-5013 053501 408471 301804 5 [place] 110cm 5 Fr catheter (962009) INFLATOR Merit Merit 1 AD6822 558381 692933 687544 1 5 Loud [employer] (GT2968) CHOICE PT Emeigh 1 [id number] 588161 765586 180693 5 Extra Support Scientific 182cm wire ([id number]) GUIDE 6FR AR Medtronic 1 [id number] 976075 80266 218405 1 1.0 SH catheter ([id number]) GUIDE 6FR HS I Medtronic 1 [id number] 656669 38123 415973 1 SH catheter ([id number]) ROXANNE RX 2.5 x Medtronic 1 [id number] 866850 2904412 303894 5 [id number] 18 stent ([id number]) ROXANNE RX 2.5 x Medtronic 1 [id number] 157450 9470011 583926 5 [id number] 26 stent ([id number]) TR BAND Terumo 1 [id number] 378828 365476 977862 4 0 Standard ([id number]) Signature Audit [place] Stage Time Signature Unsigned Intra-Procedure 04/15/2018 Loyda Zhao 10:27:35 AM RT(R) Signatures Monitor : Loyda Zhao RT Signature : Date : Time : [facility] [address] [place] [address]
[2018-04-15 08:35] VITALS: BP 124/60; Ht 167.6 cm; Wt 63.2 kg
[2018-04-15 08:44] LABS: BASOPHILS 0.5 % (0-2); EOSINOPHILS 2.6 % (0-7); HEMATOCRIT 37.3 % (36.0-48.0); HEMOGLOBIN 12.2 g/dL (12-16); IMMATURE GRANULOCYTES 0.3 % (0-5); LYMPHOCYTES 24.8 % (15-50); MCH 30.4 pg (26.0-34.0); MCHC 32.7 g/dL (31.0-37.0); MEAN PLATELET VOLUME 10.1 fL (7.4-10.4); MONOCYTES 10.4 % (2-11); NEUTROPHILS 61.4 % (40-80); PLATELET COUNT 178 10x3/uL (130-400); RBC 4.01 10x6/uL (4.00-5.40); RDW 13.4 % (11.5-14.5); WBC 6.5 10x3/uL (4.8-10.8)
[2018-04-15 08:55] LABS: CALCIUM 8.9 mg/dL (8.5-10.1); CARBON DIOXIDE 29.3 mmol/L (21.0-32.0); CREATININE - SERUM 0.9 mg/dL (0.6-1.3); POTASSIUM - SERUM 4.3 mmol/L (3.5-5.1)
== END | disposition home or self-care (01) ==
LOC: D.CATH 08:00
PROVIDERS: Internal Medicine Interventional Cardiology
DX: I25.119 Atherosclerotic heart disease of native coronary artery with unspecified angina pectoris (principal); Z01.812 Encounter for preprocedural laboratory examination
CPT/HCPCS: 93458; C9600

== ENCOUNTER 2018-04-19 09:39 | Observation (INO) | payer MEDICARE, OTHER ==
[~2018-04-19] VITALS: Ht 167.6 cm; Wt 67.5 kg
--- NOTE | ~2018-04-19 | HP ---
PATIENT: ROXANA SOLIS MEDICAL RECORD: [id number] ACCOUNT: [id number] LOCATION:STEVEN : 38 ADMISSION DATE: 04/19/18 PCP: THAI FERREIRA MD HISTORY AND PHYSICAL EXAMINATION DIAGNOSES: 1. Angina. 2. Coronary artery disease. 3. Recent PTCA stent of the RCA with concomitant disease, LAD and circumflex. 4. Hypertension. 5. Hyperlipidemia. HISTORY OF PRESENT ILLNESS: Ms. Solis presents with continued anginal symptomatology. She underwent recent cardiac catheterization and PTCA stent of the RCA, but has concomitant disease of circumflex and LAD, is now brought back for PTCA stent of these territories. PHYSICAL EXAMINATION: GENERAL APPEARANCE: Well-nourished, well-developed, appears stated age. Level of distress, comfortable. PSYCHIATRIC: Mental status, alert, normal affect. Orientation, oriented to time, place and person. EYES: Lids and conjunctiva, noninjected. No discharge, no pallor. ENT: Lips, teeth, gums, normal dentition. Oropharynx, no cyanosis, no pallor. NECK: Carotid arteries, bilateral normal upstroke, no bruits, no thrills. JUGULAR VEINS: No jugular venous pressure or distention. CERVICAL LYMPH NODES: Nontender, nonenlarged. THYROID: Not enlarged. Nontender. No nodules. LUNGS: Respiratory effort, unlabored. CHEST: Normal curvature. No thoracic deformity. No chest wall tenderness. Percussion, resonant. Auscultation, clear. No wheezes, no rales, no rhonchi. CARDIOVASCULAR: Precordial exam, nondisplaced. No heaves or pericardial thrills. Rate and rhythm, regular. Heart sounds, normal S1, normal S2. No S3, no gallop, no rub. Systolic murmur, not heard. Diastolic murmur, not heard. EXTREMITIES: No cyanosis, no edema. Peripheral pulses, full and equal in all extremities, except as noted. No bruits appreciated. ABDOMEN: Soft, nondistended. Normal aorta. No bruit. Nontender. No masses. Liver, nontender, no hepatomegaly. Spleen, nontender, no splenomegaly. MUSCULOSKELETAL: No joint tenderness. No joint swelling. No erythema. NEUROLOGICAL: Normal gait, normal strength, normal tone. SKIN: Warm and dry. REVIEW OF SYSTEMS: The patient reports easy bruising but reports no swollen glands. The patient reports no fever, no night sweats, no significant weight gain, no significant weight loss. No significant exercise tolerance. The patient reports no dry eyes, no irritation, no vision change. Patient reports no difficulty hearing and no ear pain. Patient reports no frequent nose bleeds or nose and sinus problems. Patient reports on arm pain on exertion. No shortness of breath while lying down. No history of heart murmur. Patient reports no cough, no wheezing or coughing up blood. Patient reports no abdominal pain, no vomiting. Normal appetite. No diarrhea and not vomiting blood. No nausea and no constipation. Patient reports no incontinence. No difficulty urinating. No hematuria. No increased frequency. Patient reports no muscle aches. No weakness, no arthralgias, no back pain. No swelling of the extremities. Patient reports no abnormal mole, no jaundice, no rashes. Reports HISTORY AND PHYSICAL [id number] ROXANA SOLIS no loss of consciousness. No weakness and no numbness. No seizures, dizziness, or headaches. The patient reports no depression, no sleep disturbance, feeling safe in a relationship and no alcohol abuse. Patient reports on fatigue. Reports no runny nose or sinus pressure. No itching, no hives, and no frequent sneezing. OVERALL IMPRESSION: Anginal symptomatology with significant disease of the LAD and left circumflex. We will proceed with transcatheter revascularization of these territories. TRANSINT:[id number] Voice Confirmation ID: [id number] DOCUMENT ID: [id number] LESLY PEREZ MD at 1739 CC: [id number] DICTATION DATE: 04/19/18 1411 CERTIFIED CAREGIVER: 04/19/18 1447 REG [facility] [address] [place] [id number]
--- NOTE | ~2018-04-19 | OP ---
PATIENT NAME: ROXANA SOLIS MEDICAL RECORD: [id number] :38 LOCATION:D.M2 D.2132 ADMISSION DATE:04/19/18 SURGEON: LESLY PEREZ MD DATE OF OPERATION: 04/19/2018 PROCEDURES: 1. PTCA stent left circumflex. 2. Intravascular ultrasound of the LAD. 3. Left heart catheterization. 4. Selective coronary angiography. 5. Left ventriculogram. INDICATION: Angina and coronary artery disease. PROCEDURE PERFORMED: After informed consent was obtained and after detailed description of risks, benefits as well as alternative therapies, the patient elected to proceed with angiogram and angioplasty. The right femoral area was prepped and draped in normal sterile fashion. Right femoral artery was cannulated via modified Seldinger technique with placement of 6-Greenlandic sheath. All catheters exchanged through this sheath. FINDINGS: The left anterior descending does not have significant disease. It is just a small vessel and tortuous, but there is no significant fixed obstructive disease. We turned our attention to the circumflex that is 90% stenosis addressed with a 2.75 x 18 mm [place] stent. Result was 0% residual stenosis. OVERALL IMPRESSION: Successful percutaneous transluminal angioplasty stent of the left circumflex going from 90% initial stenosis to 0% residual. TRANSINT:[id number] Voice Confirmation ID: [id number] DOCUMENT ID: [id number] LESLY PEREZ MD at 1108 CC: [id number] DICTATION DATE: 04/19/18 1433 CARPET SEWING MACHINE OPERATOR: 04/19/182056 DIS IN 04/20/18 [place] [id number] [place] [id number]
--- NOTE | ~2018-04-19 | DS ---
PATIENT:ROXANA SOLIS :38 MEDICAL RECORD: [id number] DISCHARGE SUMMARY ADMISSION DATE: 04/19/18 DISCHARGE DATE: 04/20/18 DATE OF DISCHARGE: 04/20/2018 DATE OF SERVICE: 04/20/2018 DIAGNOSES: 1. Angina. 2. Coronary artery disease. 3. Percutaneous transluminal coronary angioplasty and stent of the left circumflex this admission. HOSPITAL COURSE: Ms. Solis presented with anginal symptomatology, underwent successful PTCA and stent of the left circumflex, has kept overnight for minor groin bleed, this stabilized and discharged home with no change in her medications as she is already on aspirin and Plavix. We will follow up with [facility] in 1 month. TRANSINT:[id number] Voice Confirmation ID: [id number] DOCUMENT ID: [id number] LESLY PEREZ MD at 1108 CC: [id number] DICTATION DATE: 04/20/18928 LUNCH COUNTER MANAGER: 04/20/18 2354 DIS IN 04/20/18 [place] [id number]
--- NOTE | ~2018-04-19 | MORECARE ---
CASE MANAGEMENT DISCHARGE SUMMARY PATIENT: ROXANA SOLIS UNIT: [id number] ADM DATE: 04/19/18 AGE: 77 : 38 SEX: F ROOM/BED: D.2132 AUTHOR: DEJAN COYLE PHYSICIAN: REFERRING PHYSICIAN: LESLY PEREZ MD DATE OF SERVICE: 04/22/18 Discharge Plan Patient Name: [facility]OXANA SOLIS [facility] [facility] 1940 Planned Disposition: Home Anticipated Discharge Date: 04/20/18 Discharge Date: 04/20/2018 Expected LOS: 1 Initial Reviewer: [id number] Initial Review Date: 04/22/2018 Generated: 04/22/18 2:10 pm Patient Name: ROXANA SOLIS Page [phone] at 1311 All edits/amendments must be made on the electronic document DICTATION DATE: 04/22/18 1310 PUBLIC HEALTH SANITARIAN: PONCHO 04/22/18 1310 RPT#: [id number] DC DATE:04/20/18 STATUS: DIS IN [facility] [address] [place] [address] END OF REPORT
--- NOTE | ~2018-04-19 | HEMODYNAMI ---
PATIENT:ROXANA SOLIS MEDICAL RECORD: [id number] : 38 LOCATION:[facility] ADMISSION DATE: 04/19/18 Generatedon:04/19/201814:48 Patient name: ROXANA SOLIS Patient #: [id number] SSN: : 1940 Date of study: 04/19/2018 Page: Of Hemodynamic Procedure Report Patient Data Patient Demographics Procedure consent was obtained First Name: ROXANA Gender: Female Last Name: IRMA : 1940 [facility] Initial: NOLAN Age: 77 year(s) Patient #: [id number] Race: Unknown Additional ID: [id number] Contact details [address]: [address] [place] [address] State: [place] City: [place] Zip code: [address] Past Medical History Allergies Allergen Reaction Date Comments Reported Other allergy 04/19/2018 HYDROCHLOROTHIAZIDE Admission Admission Data Admission Date: 04/19/2018 Admission Time: 9:39 Admit Source: Other Lab Results Lab Result Date: 04/19/2018 Lab Result Time: 0:00 Biochemistry Name Units Result Min Max BUN mg/dl 24 --(----)-* 7 18 Creatinine mg/dl 0.9 --(-*--)-- 0.6 1.3 CBC Name Units Result Min Max Hemoglobin g/dl 12.6 -*(----)-- 13.5 17.5 Procedure Procedure Types Cath Procedure Diagnostic Procedure FFR/IVUS Intra-Coronary IVUS Initial Sedation Charges Moderate Sedation up to 15 minutes PCI Procedure Coronary Stent Coronary Stent Initial Procedure Description Procedure Date Procedure Date: 04/19/2018 Procedure Start Time: 14:19 Procedure End Time: 14:32 Procedure Staff Name Function Hu Samuel RN Nurse Stan Marcial MD Performing Physician Cesilia Mast RT Monitor Antoine Canas RT Scrub Procedure Data Cath Procedure Fluoroscopy Diagnostic fluoroscopy Total fluoroscopy Time: 4.2 time: 4.2 min min Diagnostic fluoroscopy Total fluoroscopy dose: 85 dose: 85 mGy mGy Contrast Material Contrast Material Type Amount (ml) Isovue 300 81 Entry Location Entry Primary Successful Side Size Upsize Upsize Entry Closure Succes sful Closure Location (Fr) 1 (Fr) 2 (Fr) Remarks Device Remarks Femoral Right 6 Fr Exoseal artery Short Estimated blood loss: 10 ml Procedure Complications No complications Procedure Medications Medication Administration Route Dosage Oxygen etCO2 Nasal cannula 2 l/min Lidocaine 2% added to field 20 Heparin Flush Bag added to field 2 bags (1000units/500ml NS) 0.9% NaCl I.V. 100 ml/hr Versed I.V. 1 mg Fentanyl I.V. 50 mcg Versed I.V. 1 mg Fentanyl I.V. 50 mcg Versed I.V. 1 mg Heparin Bolus I.V. 4000 units Versed I.V. 1 mg Hemodynamics Rest HGB: 12.6 (g/dl) Heart Rate: 63 (bpm) Snapshots Pre Cath Intra NCS Post Cath Vital Signs Time Heart Resp SPO2 etCO2 NIBP (mmHg) Rhythm Pain Sedation Rate (ipm) (%) (mmHg) Status Level (bpm) 13:35:05 58 24 96 0 158/56(115) SB 0 (11) 10(A) , No pain 13:40:28 59 19 99 25.7 152/60(106) SB 0 (11) 10(A) , No pain 13:45:50 52 11 98 34.1 123/49(95) SB 0 (11) 10(A) , No pain 13:51:14 51 12 98 36.3 117/51(87) SB 0 (11) 10(A) , No pain 13:55:34 51 11 99 0 120/50(88) SB 0 (11) 10(A) , No pain 14:01:03 51 12 99 34.8 120/50(92) SB 0 (11) 10(A) , No pain 14:05:21 53 12 99 36.3 121/51(88) SB 0 (11) 10(A) , No pain 14:09:41 51 12 99 35.5 116/51(81) SB 0 (11) 10(A) , No pain 14:14:02 48 18 98 38.6 107/44(79) SB 0 (11) 10(A) , No pain 14:18:20 48 21 98 37.8 102/39(74) NSR 0 (11) 9(A) , No pain 14:22:36 51 15 98 39.3 102/42(77) NSR 0 (11) 9(A) , No pain 14:26:52 53 14 98 1.5 104/43(81) NSR 0 (11) 9(A) , No pain 14:31:08 55 18 98 0 108/48(85) NSR 0 (11) 10(A) , No pain Medications Time Medication Route Dose Verified Delivered Reason Notes Effectiveness by by 13:43:42 Oxygen etCO2 2 Stan Ybarraie used for Nasal l/min Aggie Samuel RN procedure cannula 13:43:51 Lidocaine 2% added 20ml Stan Stan for local to vial Aggie Marcial MD anesthetic field 13:43:58 Heparin Flush added 2 Stan Stan used for Bag to bags Aggie Marcial MD procedure (1000units/500ml field NS) 13:44:08 0.9% NaCl I.V. 100 Stan Lui Per physician ml/hr Aggie Samuel RN 14:10:12 Versed I.V. 1 mg Stan Lui for sedation Aggie Samuel RN 14:10:18 Fentanyl I.V. 50 Stan Lui for sedation mcg Aggie Samuel RN 14:15:03 Versed I.V. 1 mg Stanmoncho Lui for sedation Aggie Samuel RN 14:15:07 Fentanyl I.V. 50 Stan Ybarraie for sedation mcg Aggie Samuel RN 14:19:28 Versed I.V. 1 mg Stan Lui for sedation Aggie Samuel RN 14:20:26 Heparin Bolus I.V. 4000 Stan Lui for VERIF IED units Aggie Samuel RN anticoagulation WITH DR MARCIAL 14:28:38 Versed I.V. 1 mg Stan Lui for sedation Aggie Samuel RN Procedure Log Time Note 13:09:38 Admit Source: Other 13:09:42 Diagnostic Cath status Elective 13:09:45 Hu Samuel RN sent for patient. Start room use. 13:09:47 Time tracking: Regular hours (M-F 7:00 - 5:00) 13:09:53 Plan of Care:Hemodynamics will remain stable., Cardiac rhythm will remain stable., Comfort level will be maintained., Respiratory function will remain adequate., Patient/ family verbilizes understanding of procedure., Procedure tolerated without complication., Recovers from procedure without complications.. 13:22:07 Patient received from Pre/Post Procedure Room to CCL 3 Alert and oriented. Tansferred to table in Supine position. 13:22:08 Warm blankets applied, and cecilia hugger turned on for patient comfort. 13:22:09 Correct patient and procedure confirmed by team. 13:22:10 Signed procedure consent form obtained from patient. 13:22:12 ECG and BP/O2 sat monitors applied to patient. 13:33:44 Vital chart was started 13:33:46 Baseline sample Acquired. 13:33:49 Rhythm: sinus rhythm 13:33:50 Full Disclosure recording started 13:34:20 Pre-op teaching completed and patient verbalized understanding. 13:34:20 Pre-procedure instructions explained to patient. 13:34:22 Family in patients room. 13:34:23 Patient NPO since Midnight. 13:34:32 Is patient on blood thinner?Yes 13:34:35 ACC The patient was administered the following blood thiners within the last 24 hours: ACCPlavix 13:36:16 Patient diabetic? No. 13:36:37 Patient allergic to Other allergyHYDROCHLOROTHIAZIDE 13:36:46 Previous problem with sedation/anesthesia? No ? 13:36:47 Snore? Yes 13:36:48 Sleep apnea? No 13:36:49 Deviated septum? No 13:36:51 Opens mouth fully? Yes 13:36:52 Sticks out tongue? Yes 13:37:00 Airway obstruction? Yes BRONCHITIS 13:37:04 Dentures? No ? 13:37:07 Pre procedure: right dorsailis pedis pulse 2+ Normal; easily identifiable; not easily obliterated 13:37:13 Patient pain scale 0/10 ?. 13:37:26 IV patent on arrival in left forearm with 0.9% NaCl at [facility]. 13:38:02 Lab Result : Hemoglobin 12.6 g/dl 13:38:02 Lab Result : Creatinine 0.9 mg/dl 13:38:02 Lab Result : BUN 24 mg/dl 13:38:05 Lab results completed and on chart. 13:38:09 Alarms reviewed by Minh Ricks 13:38:09 Right groin area was prepped with chlora-prep and draped in sterile fashion 13:38:10 Sharps counted by scrub and verified by R.N. 13:39:04 Use device set CATH PACK 13:39:05 ACIST Syringe (64667) opened to sterile field. 13:39:06 Medline Cath Pack ([id number]) opened to sterile field. 13:39:06 ACIST Manifold (14797) opened to sterile field. 13:39:06 ACIST Hand Control (60566) opened to sterile field. 13:39:07 DIAGNOSTIC WIRE .035 260cm J wire (063745) opened to sterile field. 13:39:07 Bag Decanter (2002S) opened to sterile field. 13:39:21 SHEATH 6FR [place] (NWQ928) opened to sterile field. 13:39:22 INFLATOR Merit BasixCompak (SI4906) opened to sterile field. 13:39:22 CHOICE PT Extra Support 182cm wire ([id number]) opened to sterile field. 13:43:42 Oxygen 2 l/min etCO2 Nasal cannula was administered by Hu Samuel RN; used for procedure; 13:43:51 Lidocaine 2% 20ml vial added to field was administered by Stan Marcial MD; for local anesthetic; 13:43:58 Heparin Flush Bag (1000units/500ml NS) 2 bags added to field was administered by Stan Marcial MD; used for procedure; 13:44:08 0.9% NaCl 100 ml/hr I.V. was administered by Hu Samuel RN; Per physician; 14:09:03 Final Timeout: patient, procedure, and site verified with staff and physician. All members of the team are in agreement. 14:09:03 --------ALL STOP TIME OUT------ 14:09:16 Right groin site verified by team. 14:09:20 Physical assessment completed. ASA score P 2 - A patient with mild systemic disease as per Stan Marcial MD. 14:09:23 Sedation plan: IV Moderate Sedation Medication:Versed, Fentanyl 14:10:12 Versed 1 mg I.V. was administered by Hu Samuel RN; for sedation; 14::18 Fentanyl 50 mcg I.V. was administered by Hu Samuel RN; for sedation; 14:14:07 Zero performed for pressure channel P1 14:15:03 Versed 1 mg I.V. was administered by Hu Samuel RN; for sedation; 14:15:07 Fentanyl 50 mcg I.V. was administered by Hu Samuel RN; for sedation; 14:16:09 Gordon Hun[place]ell E[place] IVUS Catheter (78291E) opened to sterile field. 14:16:14 GUIDE 6FR XBLAD 3.5 catheter ([id number]) opened to sterile field. 14:18:58 Procedure started. 14:19:28 Local anesthetic to right femoral artery with Lidocaine 2% by Stan Marcial MD.INITIAL ACCESS ONLY 14:19:28 Versed 1 mg I.V. was administered by Hu Samuel RN; for sedation; 14:19:45 A 6 Fr Short sheath was inserted into the Right Femoral artery 14:19:58 6 Fr XBLAD 3.5 guide catheter was inserted over the wire 14:20:26 Heparin Bolus 4000 units I.V. was administered by Hu Samuel RN; for anticoagulation; VERIFIED WITH DR MARCIAL 14:20:37 CHOICE ES 182 wire advanced. 14:20:57 Wire advanced across lesion. 14:21:00 IVUS catheter advanced over wire. 14:22:09 IVUS pass to LAD lesion performed. 14:22:10 IVUS catheter removed over wire. 14:24:05 Wire removed. 14:24:15 Guide catheter removed. 14:24:45 GUIDE 6FR XB 3.5 catheter ([id number]) opened to sterile field. 14:24:52 6 Fr XB guide catheter was inserted over the wire 14:25:22 CHOICE ES 182 wire advanced. 14:26:15 Wire advanced across lesion. 14:28:37 Place stent Inflation Number: 1 A ROXANNE RX 2.75 x 18 stent ([id number]) was prepped and advanced across the Prox CX. The stent was deployed at 13 JUDIE for 0:10 (min:sec). 14:28:38 Versed 1 mg I.V. was administered by Hu Samuel RN; for sedation; 14:28:59 Wire removed. 14:29:01 Stent catheter was removed intact over wire. 14:29:02 Guide catheter removed. 14:30:43 EXOSEAL 6Fr (EX600) opened to sterile field. 14:30:50 Sheath removed intact; hemostasis achieved with Exoseal to the Right Femoral artery. 14:30:52 Procedure ended.(Physican Out) 14:31:33 Fluoroscopy time 04.20 minutes. 14::38 Fluoroscopy dose: 85 mGy 14:31:38 Flurop Dose total: 85 14:31:42 Contrast amount:Isovue 300 81ml. 14:31:43 Sharps counted by scrub and verified by R.N. 14:31:47 Post-op/insertion site Right Femoral artery dressed using a 4 x 4 and Tegaderm. 14:31:50 Post right femoral artery:stable, soft, clean and dry 14:31:53 Post-procedure physical assessment completed. ASA score P 2 - A patient with mild systemic disease as per Stan Marcial MD. 14:31:56 Post procedure rhythm: sinus bradycardia 14:32:00 Estimated blood loss: 10 ml 14:32:01 Patient needs reinforcement of post procedure teaching. 14:32:01 Post procedure instruction explained to patient.Patient verbalizes understanding. 14:32:21 Procedure type changed to Cath procedure, Diagnostic procedure, FFR/IVUS, Intra-Coronary IVUS Initial, Sedation Charges, Moderate Sedation up to 15 minutes, PCI procedure, Coronary Stent, Coronary Stent Initial 14:32:41 Procedure and supply charges have been captured, reviewed, submitted and are correct. 14:32:44 Procedure Complication : No complications 14:32:46 See physician's report for complete and final results. 14:32:46 Vital chart was stopped 14:32:48 Report given to Pre/Post Procedure Room. 14:32:50 Patient transfered to Pre/Post Procedure Room with Bed. 14:32:52 Full Disclosure recording stopped 14:32:52 Procedure ended. 14:32:57 End room use (Document Last) 14:47:49 FEMSTOP Gold ([id number]) opened to sterile field. 14:48:01 Femstop placed over the right femoral artery at 130 mmHg. Hemostasis achieved. Intervention Summary Intervention Notes Time ActionType Lesion and Equipment Used Action# Pressure Duration Attributes 14:28:37 Place stent Prox CX ROXANNE RX 2.75 x 1 13 00:10 18 stent ([id number]) Device Usage Item Name Manufacture Quantity Catalog Number Hospital Part Current M inimal Lot# / Charge Number Stock Stock Serial# Code ACIST Syringe Acist 1 09569 364663 308387 899605 2 0 (77919) Medical Systems Inc ACIST Hand Acist 1 69156 467721 375820 765981 5 Control Medical (29391) Systems Inc ACIST Manifold Acist 1 71130 420338 252506 954208 5 (60568) Medical Systems Inc Medline Cath Medline 1 [id number] 850571 03472 413085 5 Pack ([id number]) Bag Decanter Microtek 1 2001S 392033 90691 223156 5 (2001S) Medical Inc. DIAGNOSTIC St Hardik 1 380478 304134 370563 905699 3 0 WIRE .035 260cm J wire (641444) SHEATH 6FR Terumo 1 [id number] 221510 953416 592042 4 0 [place] (OSW607) CHOICE PT [place] 1 [id number] 367303 466014 208605 5 Extra Support Scientific 182cm wire (1403364T2) INFLATOR Merit Merit 1 AI9699 480253 782455 940344 1 5 Aplica (KX7524) Gordon Gordon 1 28268Y 691998 903392 953558 8 [place] Eag[place]e IVUS Catheter (26695V) GUIDE 6FR Cardinal 1 [id number] 553479 600528 546352 1 0 XBLAD 3.5 Health catheter (45791534) GUIDE 6FR XB Cardinal 1 70768620 346731 842963 671740 2 3.5 catheter Health (40303755) ROXANNE RX 2.75 x Medtronic 1 [id number] 366716 1318167 215404 5 [id number] 18 stent ([id number]) EXOSEAL 6Fr Cardinal 1 EX600 466315 976193 037260 1 0 (EX600) Health FEMSTOP Gold St Hardik 1 R85110 135466 836152 479560 5 (O64342) Signature Audit [place] Stage Time Signature Unsigned Intra-Procedure 04/19/2018 Cesilia Zamoraa Mast 2:38:56 PM RT(R) RT(R) 04/19/2018 2:47:21 PM Intra-Procedure 04/19/2018 Cesilia Mast 2:48:43 PM RT(R) Signatures Monitor : Cesilia Mast Signature : RT Date : Time : [address] [place] [address]
[2018-04-19 10:17] VITALS: BP 140/46; BMI 22.3
[2018-04-19 11:00] LABS: ANION GAP 10.7 mmol/L (8-16); CALCIUM 9.3 mg/dL (8.5-10.1); CARBON DIOXIDE 30.2 mmol/L (21.0-32.0); CREATININE - SERUM 0.9 mg/dL (0.6-1.3); POTASSIUM - SERUM 3.9 mmol/L (3.5-5.1)
[2018-04-19 11:12] LABS: BASOPHILS 0.3 % (0-2); EOSINOPHILS 2.7 % (0-7); HEMATOCRIT 38.4 % (36.0-48.0); HEMOGLOBIN 12.6 g/dL (12-16); IMMATURE GRANULOCYTES 0.3 % (0-5); LYMPHOCYTES 27.2 % (15-50); MCH 30.2 pg (26.0-34.0); MCHC 32.8 g/dL (31.0-37.0); MCV 92.1 fL (80.0-100.0); MEAN PLATELET VOLUME 10.4 fL (7.4-10.4); MONOCYTES 9.3 % (2-11); NEUTROPHILS 60.2 % (40-80); PLATELET COUNT 198 10x3/uL (130-400); RBC 4.17 10x6/uL (4.00-5.40); RDW 13.3 % (11.5-14.5); WBC 6.3 10x3/uL (4.8-10.8)
[2018-04-19 23:36] VITALS: BP 121/56; Ht 167.6 cm; Wt 67.5 kg
[2018-04-19 23:53] VITALS: BP 130/50
[2018-04-20 04:00] VITALS: BP 132/47
[2018-04-20 07:29] VITALS: BP 110/42
== END 2018-04-20 11:28 | disposition home or self-care (01) ==
LOC: D.CATH 09:39 → D.M2 19:00 → OBSVTIME 19:00 → D.M2 04-20 11:28
PROVIDERS: Internal Medicine Interventional Cardiology
DX: I25.119 Atherosclerotic heart disease of native coronary artery with unspecified angina pectoris (principal); I10 Essential (primary) hypertension; E78.5 Hyperlipidemia, unspecified
CPT/HCPCS: 93458; 92978; C9600

== ENCOUNTER 2018-06-04 12:23 | Outpatient (CLI) | payer MEDICARE, OTHER ==
[~2018-06-04] VITALS: Ht 167.6 cm; Wt 64.1 kg
--- NOTE | 2018-06-04 13:25 | NUR ---
Reclast is infusing with no complaints.
[2018-06-04 13:36] VITALS: BP 160/67; Ht 167.6 cm; Wt 64.1 kg
--- NOTE | 2018-06-04 13:58 | NUR ---
Reclast infusion is complete.
--- NOTE | 2018-06-04 14:03 | NUR ---
Patient has left the floor, no complaints. Patient education has been reviewed with patient, patient stated understanding.
== END 2018-06-04 14:03 ==
LOC: D.OPS 12:23
DX: M81.0 Age-related osteoporosis without current pathological fracture (principal); Z01.812 Encounter for preprocedural laboratory examination

== ENCOUNTER → 2018-10-31 07:23 | Outpatient (CLI) | payer MEDICARE, OTHER ==
[2018-06-04 13:36] VITALS: BMI 22.8
== END | disposition home or self-care (01) ==
LOC: D.US 10-25 08:00
PROVIDERS: ATTEND Internal Medicine Cardiovascular Disease
DX: I65.23 Occlusion and stenosis of bilateral carotid arteries (principal)

== ENCOUNTER → 2018-11-20 08:30 | Outpatient (CLI) | payer MEDICARE, OTHER ==
[2018-06-04 13:36] VITALS: BMI 22.8
== END | disposition home or self-care (01) ==
LOC: D.RAD 08:15
PROVIDERS: ATTEND Internal Medicine Pulmonary Disease
DX: J47.9 Bronchiectasis, uncomplicated (principal)

== ENCOUNTER 2019-04-07 17:33 | Observation (INO) | payer MEDICARE, OTHER ==
[~2019-04-07] VITALS: Ht 167.6 cm; Wt 61.4 kg
--- NOTE | 2019-04-07 17:42 | NUR ---
PT LEAVING ED VIA STRETCHER FOR ORDERED TEST.
--- NOTE | 2019-04-07 18:12 | NUR ---
PT BACK TO THE ED AT THIS TIME, NO SIGNS OF DISTRESS. CALL LIGHT IN REACH, SIDE RAILS RAISED X2.
[2019-04-07 18:28] LABS: BASOPHILS 0.7 % (0-2); EOSINOPHILS 3.8 % (0-7); HEMATOCRIT 37.2 % (36.0-48.0); HEMOGLOBIN 12.2 g/dL (12-16); IMMATURE GRANULOCYTES 0.7 % (0-5); LYMPHOCYTES 27.3 % (15-50); MCHC 32.8 g/dL (31.0-37.0); MCV 94.4 fL (80.0-100.0); MEAN PLATELET VOLUME 10.1 fL (7.4-10.4); MONOCYTES 9.9 % (2-11); NEUTROPHILS 57.6 % (40-80); PLATELET COUNT 186 10x3/uL (130-400); RBC 3.94 10x6/uL (4.00-5.40); RDW 13.5 % (11.5-14.5); WBC 7.6 10x3/uL (4.8-10.8)
[2019-04-07 18:39] LABS: APTT 33.1 SECONDS (22.8-39.4); INR 1.07 (0.85-1.17); PROTIME 13.4 SECONDS (11.6-15.0)
[2019-04-07 18:40] LABS: ANION GAP 12.7 mmol/L (8-16); CALCIUM 8.8 mg/dL (8.5-10.1); CARBON DIOXIDE 28.4 mmol/L (21.0-32.0); POTASSIUM - SERUM 4.1 mmol/L (3.5-5.1)
[2019-04-07 18:45] LABS: ALBUMIN 3.7 g/dL (3.4-5.0); BILIRUBIN - TOTAL 0.28 mg/dL (0.2-1.3)
--- NOTE | 2019-04-07 19:00 | NUR ---
HAND OFF REPORT GIVEN AT BEDSIDE TO FACUNDO CHEUNG. PT C/O PAIN TO LEFT FOREARM JUST BELOW THE LEFT ELBOW. LARGE RAISED AREA, FIRM TO THE TOUCH WITH SOME BRUISING NOTED. THIS AREA NOT NOTED DURING INITIAL ASSESSMENT. EDP NOTIFIED. XR ORDERED.
[2019-04-07 19:13] LABS: APPEARANCE CLEAR (CLEAR); BILIRUBIN NEGATIVE (NEGATIVE); COLOR YELLOW (YELLOW); GLUCOSE NEGATIVE (NEGATIVE); KETONE NEGATIVE (NEGATIVE); NITRITE NEGATIVE (NEGATIVE); PROTEIN NEGATIVE (NEGATIVE); UROBILINOGEN NORMAL (NORMAL)
[2019-04-07 19:15] LABS: RED CELLS - URINE OCC /hpf (0-5); WHITE CELLS - URINE 0-5 /hpf (NEGATIVE)
[2019-04-07 19:16] LABS: BACTERIA FEW /hpf (NEGATIVE); EPITHELIAL CELLS OCC /hpf (0-5)
[2019-04-07 19:30] VITALS: BP 165/54
[2019-04-07 19:37] LABS: CKMB 1.8 U/L (0.0-3.6); CREATINE KINASE 104 UL (21-215)
[2019-04-07 19:47] LABS: TROPONIN-I < 0.017 ng/mL (0.000-0.060)
--- NOTE | 2019-04-07 22:20 | NUR ---
PT ARRIVED TO THE FLOOR. ALERT AND ORIENTED. NO SIGNS OF DISTRESS. BREATHING EVEN AND UNLABORED. IV SITE 18G RT FA DRESSING CLEAN DRY AND INTACT. NO SIGNS OF INFECTION. SKIN CLEAN DRY AND INTACT. LT FA HEMATOMA PRESENT WITH ICE PACK. BOWEL SOUNDS ACTIVE. LUNG SOUNDS CLEAR. NO LOWER LEG SWELLING PRESENT. PT STATES NO PROBLEMS AT THIS TIME. WILL CONTINUE PLAN OF CARE. CALL LIGHT IN REACH. BED LOWERED AND LOCKED. BED RAILS UPX2.
[2019-04-08 01:25] VITALS: BP 128/43
[2019-04-08 02:09] LABS: CKMB 4.1 U/L (0.0-3.6); CREATINE KINASE 138 UL (21-215); TROPONIN-I < 0.017 ng/mL (0.000-0.060)
[2019-04-08 02:41] VITALS: BP 137/46; Ht 167.6 cm; Wt 61.4 kg
[2019-04-08 04:46] VITALS: BP 120/60
[2019-04-08 04:51] LABS: BASOPHILS 0.3 % (0-2); EOSINOPHILS 2.9 % (0-7); HEMATOCRIT 37.2 % (36.0-48.0); HEMOGLOBIN 11.9 g/dL (12-16); IMMATURE GRANULOCYTES 0.1 % (0-5); LYMPHOCYTES 27.6 % (15-50); MCH 30.4 pg (26.0-34.0); MCV 95.1 fL (80.0-100.0); MEAN PLATELET VOLUME 10.1 fL (7.4-10.4); MONOCYTES 11.5 % (2-11); NEUTROPHILS 57.6 % (40-80); PLATELET COUNT 184 10x3/uL (130-400); RBC 3.91 10x6/uL (4.00-5.40); RDW 13.8 % (11.5-14.5); WBC 7.9 10x3/uL (4.8-10.8)
[2019-04-08 05:16] LABS: CALCIUM 8.7 mg/dL (8.5-10.1); CARBON DIOXIDE 26.2 mmol/L (21.0-32.0); CHLORIDE - SERUM 106 mmol/L (98-107); CKMB 3.2 U/L (0.0-3.6); CREATINE KINASE 160 UL (21-215); MAGNESIUM - SERUM 2.3 mg/dL (1.8-2.4); PHOSPHOROUS 4.1 mg/dL (2.5-4.9); SODIUM 141 mmol/L (136-145); TROPONIN-I < 0.017 ng/mL (0.000-0.060)
[2019-04-08 05:26] LABS: CALC OSMOLALITY 279 mosm/kg (275-300); CREATININE - SERUM 0.7 mg/dL (0.6-1.3); GLUCOSE 91 mg/dL (74-106); UREA NITROGEN 11 mg/dL (7-18); eGFR NON AFRICAN AMERICAN 85 mL/min (90-120)
[2019-04-08 08:24] VITALS: BP 125/68
--- NOTE | 2019-04-08 09:00 | NUR ---
ASSESSMENT PER FLOW SHEET. PT IS WITHOUT DISTRESS.MONITOR
[2019-04-08 12:54] VITALS: BP 125/45
[2019-04-08 13:11] LABS: CKMB 2.3 U/L (0.0-3.6); CREATINE KINASE 132 UL (21-215); TROPONIN-I < 0.017 ng/mL (0.000-0.060)
--- NOTE | 2019-04-08 14:21 | MORECARE ---
CASE MANAGEMENT DISCHARGE SUMMARY PATIENT: ROXANA SOLIS UNIT: [id number] ADM DATE: 04/07/19 AGE: 78 : 39 SEX: F ROOM/BED: D.2222 AUTHOR: DEJAN COYLE PHYSICIAN: REFERRING PHYSICIAN: LATOSHA GONZALES DO DATE OF SERVICE: 04/08/19 Discharge Plan Patient Name: [facility]OXANA SOLIS [facility] [facility] 1940 Planned Disposition: Home Anticipated Discharge Date: 04/08/19 Discharge Date: Expected LOS: 1 Initial Reviewer: [email or web address] Initial Review Date: 04/08/2019 Generated: 04/08/19 3:21 pm Coverage Notice Reviewer: [email or web address] - Edyta Pena Notice Issued Date-Time: 04/08/2019 13:52 Notice Type: Medicare Outpatient Observation Notice Notice Delivered To: Patient Relationship to Patient: Business Solution Analyst Name: Delivery Method: HAND - Hand Delivered Isabella Days: Prior Verbal Notification: Recipient Understood Notice: Yes Recipient Signature: Yes Med Rec Note Co-signed by Attending: Coverage Notice Comment: VILLEDA explained, signed, given, copy placed in MR Patient Name: ROXANA SOLIS Page 06874 at 1421 All edits/amendments must be made on the electronic document DICTATION DATE: 04/08/191420 FLAVORING MACHINE OPERATOR: PONCHO 04/08/19 142 RPT#: [id number] DC DATE: STATUS: ADM IN [facility] [address] [place] [address] END OF REPORT
--- NOTE | 2019-04-08 14:31 | MORECARE ---
CASE MANAGEMENT DISCHARGE SUMMARY PATIENT: ROXANA AQUINO UNIT: [id number] ADM DATE: 04/07/19 AGE: 78 : 39 SEX: F ROOM/BED: D.2222 AUTHOR: LEONIDES,DOC PHYSICIAN: REFERRING PHYSICIAN: LATOSHA GONZALES DO DATE OF SERVICE: 04/08/19 Discharge Plan Patient Name: ROXANA AQUINO Facility[facility]:[place] : 1940 Planned Disposition: Home Anticipated Discharge Date: 04/08/19 Discharge Date: Expected LOS: 1 Initial Reviewer: [email or web address] Initial Review Date: 04/08/2019 Generated: 04/08/19 3:31 pm Comments DCP- Discharge Planning Updated by [email or web address]: Edyta Pena on 04/08/19 1:[address] Patient Name: ROXANA AQUINO Admission Status: ER Accout number: [id number] Admission Date: 04-07-2019 : 1940 Admission Diagnosis: Attending: LATOSHA GONZALES Current LOS: 1 Anticipated DC Date: 04-08-2019 Planned Disposition: Home Primary Insurance: MEDICARE A & B Discharge Planning Comments: CM met with patient to complete initial dc planning assessment. CM educated patient on the CM role and verbal consent given by patient to complete assessment. Patient lives at home alone. States her daughter, Yuliana is driving here to pick her up at discharge. At discharge patient plans to return and feels this is a safe discharge. CM discussed availability of home health, rehab services, and medical equipment. Patient denied known discharge needs at this time. CM will continue to follow and will assist as needed with dc plans/needs. Poultry Vaccinator: Edyta Pena DCPIA - Discharge Planning Initial Assessment Updated by [email or web address]: Edyta Pena on 04/08/19 2:27 pm * Is the patient Alert and Oriented? Yes * How many steps to enter\exit or inside your home? 0/0 * PCP Leela Lee at [facility] * Pharmacy [facility] * Preadmission Environment Home Alone * ADLs Independent * Equipment None * List name and contact numbers for known caregivers / representatives who currently or will assist patient after discharge: Yuliana Louie - DTR - [phone] Candice Aquino - DTR - [phone] Rian Zhao [facility] - [phone] * Verbal permission to speak to the caregivers and representatives has been obtained from the patient. Yes * Community resources currently utilized None * Additional services required to return to the preadmission environment? No * Can the patient safely return to the preadmission environment? Yes * Has this patient been hospitalized within the prior 30 days at any hospital? No Coverage Notice Reviewer: [email or web address] Eva Pena Notice Issued Date-Time: 04/08/2019 13:52 Notice Type: Medicare Outpatient Observation Notice Notice Delivered To: Patient Relationship to Patient: Insurance Verifier Name: Delivery Method: HAND - Hand Delivered Isabella Days: Prior Verbal Notification: Recipient Understood Notice: Yes Recipient Signature: Yes Med Rec Note Co-signed by Attending: Coverage Notice Comment: CHRISTIANA explained, signed, given, copy placed in MR Last DP export: 04/08/19 1:21 Patient Name: ROXANA AQUINO Page 32656 at 1431 All edits/amendments must be made on the electronic document DICTATION DATE: 04/08/19 1431 ACADEMIC HOSPITALIST: PONCHO 04/08/19 1431 RPT#: [id number] DC DATE: STATUS: ADM IN [facility] [address] [place] [address] END OF REPORT
--- NOTE | 2019-04-08 15:37 | NUR ---
DISCHARGE INSTRUCTIONS,STATES UNDERSTANDING.FAMILY TO DRIVE HOME.
--- NOTE | 2019-04-08 15:44 | NUR ---
LEFT UNIT VIA WHEELCHAIR WITH FAMILY AT SIDE FOR TRANSPORT HOME
--- NOTE | 2019-04-09 07:37 | MORECARE ---
CASE MANAGEMENT DISCHARGE SUMMARY PATIENT: ROXANA AQUINO UNIT: [id number] ADM DATE: 04/07/19 AGE: 78 : 39 SEX: F ROOM/BED: D.2222 AUTHOR: LEONIDES,DOC PHYSICIAN: REFERRING PHYSICIAN: LATOSHA GONZALES DO DATE OF SERVICE: 04/09/19 Discharge Plan Patient Name: ROXANA AQUINO [facility]:[place] : 1940 Planned Disposition: Home Anticipated Discharge Date: 04/08/19 Discharge Date: 04/08/2019 Expected LOS: 1 Initial Reviewer: [email or web address] Initial Review Date: 04/08/2019 Generated: 04/09/19 8:36 am DCP- Discharge Planning Updated by [email or web address]: Edyta Pena on 04/08/19 1:[address] Patient Name: ROXANA AQUINO Admission Status: ER Accout number: [id number] Admission Date: 04-07-2019 : 1940 Admission Diagnosis: Attending: LATOSHA GONZALES Current LOS: 1 Anticipated DC Date: 04-08-2019 Planned Disposition: Home Primary Insurance: MEDICARE A & B Discharge Planning Comments: CM met with patient to complete initial dc planning assessment. CM educated patient on the CM role and verbal consent given by patient to complete assessment. Patient lives at home alone. States her daughter, Yuliana is driving here to pick her up at discharge. At discharge patient plans to return and feels this is a safe discharge. CM discussed availability of home health, rehab services, and medical equipment. Patient denied known discharge needs at this time. CM will continue to follow and will assist as needed with dc plans/needs. Head Of Biology: Edyta Pena DCPIA - Discharge Planning Initial Assessment Updated by [email or web address]: Edyta Pena on 04/08/19 2:27 pm * Is the patient Alert and Oriented? Yes * How many steps to enter\exit or inside your home? 0/0 * PCP Leela Lee at [facility] * Pharmacy [facility] * Preadmission Environment Home Alone * ADLs Independent * Equipment None * List name and contact numbers for known caregivers / representatives who currently or will assist patient after discharge: Yuliana Louie - DTR - [phone] Candice Aquino - [facility] - [phone] [facility] - [phone] * Verbal permission to speak to the caregivers and representatives has been obtained from the patient. Yes * Community resources currently utilized None * Additional services required to return to the preadmission environment? No * Can the patient safely return to the preadmission environment? Yes * Has this patient been hospitalized within the prior 30 days at any hospital? No Coverage Notice Reviewer: [email or web address] Eva Pena Notice Issued Date-Time: 04/08/2019 13:52 Notice Type: Medicare Outpatient Observation Notice Notice Delivered To: Patient Relationship to Patient: Batch Tank Controller Name: Delivery Method: HAND - Hand Delivered Isabella Days: Prior Verbal Notification: Recipient Understood Notice: Yes Recipient Signature: Yes Med Rec Note Co-signed by Attending: Coverage Notice Comment: CHRISTIANA explained, signed, given, copy placed in MR Last DP export: 04/08/19 1:31 Patient Name: ROXANA AQUINO Page 15838 at 0737 All edits/amendments must be made on the electronic document DICTATION DATE: 04/09/19735 CREDIT CARD ANALYST: PONCHO 04/09/19735 RPT#: [id number] DC DATE:04/08/19 STATUS: DIS IN [facility] [address] [place] [address] END OF REPORT
== END 2019-04-08 15:46 | disposition home or self-care (01) ==
LOC: D.ER 17:33 → D.MS 20:10 → OBSVTIME 20:10 → D.MS 20:10
PROVIDERS: Family Medicine; ADMIT Family Medicine; ATTEND Family Medicine
DX: R07.9 Chest pain, unspecified (principal); S50.12XA Contusion of left forearm, initial encounter; V49.40XA Driver injured in collision with unspecified motor vehicles in traffic accident, initial encounter; I25.10 Atherosclerotic heart disease of native coronary artery without angina pectoris; I10 Essential (primary) hypertension; J44.9 Chronic obstructive pulmonary disease, unspecified; J45.909 Unspecified asthma, uncomplicated; K21.9 Gastro-esophageal reflux disease without esophagitis; R55 Syncope and collapse

== ENCOUNTER → 2019-04-29 08:53 | Outpatient (CLI) | payer MEDICARE, OTHER ==
[2019-04-08 02:41] VITALS: BMI 21.8
== END | disposition home or self-care (01) ==
LOC: D.CT 08:53
PROVIDERS: ATTEND Internal Medicine Interventional Cardiology
DX: R55 Syncope and collapse (principal); I65.29 Occlusion and stenosis of unspecified carotid artery

== ENCOUNTER → 2019-10-27 12:39 | Outpatient (CLI) | payer MEDICARE, OTHER ==
[2019-04-08 02:41] VITALS: BMI 21.8
== END | disposition home or self-care (01) ==
LOC: D.US 12:39
PROVIDERS: ATTEND Internal Medicine Cardiovascular Disease
DX: I65.23 Occlusion and stenosis of bilateral carotid arteries (principal)

== ENCOUNTER 2020-09-30 10:00 | Outpatient (CLI) | payer MEDICARE, OTHER ==
[2019-04-08 02:41] VITALS: BMI 21.8
== END 2020-09-30 10:30 | disposition home or self-care (01) ==
LOC: D.MAMMO 10:00
PROVIDERS: ATTEND Emergency Medicine
DX: Z85.3 Personal history of malignant neoplasm of breast (principal)